=== PATIENT | female | born 1990 | race Two or more races ===

== ENCOUNTER 2023-10-05 06:43 | Emergency (ER) | payer OTHER ==
[~2023-10-05] VITALS: Ht 160 cm; Wt 99.0 kg
[2023-10-05 06:51] VITALS: O2SAT 100
[2023-10-05] MEDS: MORPHINE SULFATE 4 MG/ML INJ (FOR IV/IM USE) IV ONE (07:44)
[2023-10-05] MEDS: ONDANSETRON HCL 4MG/2ML INJ IV ONE (07:45)
[2023-10-05] MEDS: MAGNESIUM/ALUMINUM HYDROXIDE/SIMETHICONE 30ML UDC PO ONE (08:07)
[2023-10-05 08:40] LABS: BASOPHILS % 0.6 % (0.0-2.0); DIFFERENTIAL COMMENT 0; EOSINOPHILS % 0.1 % (0.0-5.0); HEMOGLOBIN. 11.9 g/dL (12.0-16.0); LYMPHOCYTES % 14.8 % (20.0-50.0); MEAN CORPUSCULAR HEMOGLOBIN 26.8 pg (28.0-32.0); MEAN CORPUSCULAR HGB CONC 33.9 g/dL (31.0-37.0); MEAN PLATELET VOLUME 7.9 fl (7.4-10.4); NEUTROPHILS % 81.5 % (40.0-76.0); PLATELET 410 x1000/uL (130-400); RED BLOOD CELL COUNT 4.43 mill/uL (4.2-5.4); RED CELL DISTRIBUTION WIDTH 14.1 % (11.6-14.6)
[2023-10-05 09:03] LABS: HCG SCREEN NEGATIVE
[2023-10-05] MEDS: SODIUM CHLORIDE 0.9% 1,000 ML IV ONE (10:28)
[2023-10-05 10:29] LABS: CHLORIDE 106 mEq/L (98-107); POTASSIUM 3.7 mEq/L (3.5-5.1); SODIUM 138 mEq/L (136-145)
[2023-10-05 10:30] LABS: CARBON DIOXIDE 22 mEq/L (21-32)
[2023-10-05 10:35] LABS: CREATININE 0.7 mg/dL (0.6-1.0); GLUCOSE 143 mg/dL (70-105)
[2023-10-05 10:36] LABS: UREA NITROGEN BLOOD 11 mg/dL (9-23)
[2023-10-05 10:37] LABS: ALANINE AMINOTRANSFERASE 16 IU/L (10-49); ALBUMIN 3.9 g/dL (3.2-4.8); ASPARTATE AMINOTRANSFERASE 17 IU/L (<34)
[2023-10-05 10:38] VITALS: BP 106/83; PULSE 52; RESP 14; TEMP 97.8
[2023-10-05 10:38] LABS: BILIRUBIN DIRECT 0.1 mg/dL (<=3.0); BILIRUBIN TOTAL 0.4 mg/dL (0.1-1.0); PROTEIN TOTAL 6.8 g/dL (6.0-8.3)
== END 2023-10-05 11:45 | disposition home or self-care (01) ==
LOC: ER 06:43
DX: K80.50 Calculus of bile duct without cholangitis or cholecystitis without obstruction (principal); Z98.890 Other specified postprocedural states
CPT/HCPCS: 80076; 80048; 84703; 85025; 36415; 74176; 76705; 96361; 96374; 96375; 99285; J2405; J2270; J7030; Z7610 ×2